=== PATIENT | female | born 1970 | race Caucasian/White ===

== ENCOUNTER 2018-01-19 18:56 | Inpatient (IN) ==
[2018-01-19] MEDS ORDERED: Midazolam 50 MG/50 ML Inj 50 MG/50 ML BAG IV.CONT ONE (19:07)
[2018-01-19] MEDS ORDERED: Propofol 1000 mg/100 ml Inj 1,000 MG/100 ML BOTTLE ONE (19:15)
--- NOTE | 2018-01-19 19:22 | XR ---
EXAM DATE: 01/19/2018 6:58 PM EDT AGE/SEX: 89 years / Female INDICATIONS: Post intubation. CLINICAL DATA: This is the patient's initial encounter. Patient reports that signs and symptoms have been present for 1 day and indicates a pain score of 0/10. MEDICAL/SURGICAL HISTORY: None. None. COMPARISON: No prior exams available for comparison. FINDINGS: The tip of ET tube is 2.2 cm from the bebeto. The NG tube is directed into the stomach. There is an a nterior cervical fusion plate seen at the lower cervical spine. The heart size is normal. The lungs a re grossly clear. Clips are seen over the left axillary region. CONCLUSION: ET tube 2.2 cm from the bebeto. This is in a low but acceptable position. Electronically signed by: Manohar Rosado MD 01/19/2018 7:21 PM EDT
--- NOTE | 2018-01-19 19:31 | CT ---
EXAM DATE: 01/19/2018 7:04 PM EDT AGE/SEX: 89 years / Female INDICATIONS: Trauma alert, fall from standing. CLINICAL DATA: This is the patient's initial encounter. Patient reports that signs and symptoms have been present for 1 day and indicates a pain score of Nonresponsive. MEDICAL/SURGICAL HISTORY: Non-responsive. Non-responsive. RADIATION DOSE: 66.34 CTDI (mGy) COMPARISON: No prior exams available for comparison. TECHNIQUE: CT of the head without contrast. Using automated exposure control and adjustment of the mA and/or kV according to patient size, radiation dose was kept as low as reasonably achievable to ob tain optimal diagnostic quality images. DICOM format image data is available electronically for revi ew and comparison. FINDINGS: Cerebrum: The ventricles are normal for age. No evidence of midline shift, mass lesion, hemorrhage or acute infarction. No extraaxial fluid collections are seen. Posterior Fossa: The cerebellum and brainstem are intact. The 4th ventricle is midline. The cerebe llopontine angle is unremarkable. Extracranial: The visualized portion of the orbits is intact. Skull: The calvaria is intact. No evidence of skull fracture. CONCLUSION: Negative noncontrast head CT. . Electronically signed by: Manohar Rosado MD 01/19/2018 7:29 PM EDT
[2018-01-19 19:32] LABS: Baso % (Auto) 0.2 % (0.0-2.0); Eos % (Auto) 0.4 % (0.0-4.0); Hematocrit 38.2 % (35.0-46.0); Hemoglobin 13.5 gm/dL (11.6-15.3); Lymph # (Auto) 1.5 th/mm3 (1.0-4.8); Lymph % (Auto) 35.4 % (9.0-44.0); Mean Corpuscular HGB Conc 35.3 % (32.0-36.0); Mean Corpuscular Hemoglobin 34.2 pg (27.0-34.0); Mean Corpuscular Volume 96.9 fL (80.0-100.0); Mean Platelet Volume 6.8 fL (7.0-11.0); Mono # (Auto) 0.5 th/mm3 (0.0-0.9); Mono % (Auto) 10.8 % (0.0-8.0); Neut # (Auto) 2.3 th/mm3 (1.8-7.7); Neut % (Auto) 53.2 % (16.0-70.0); Platelet Count 188 th/mm3 (150-450); Red Blood Count 3.94 mil/mm3 (4.00-5.30); Red Cell Distribution Width 13.8 % (11.6-17.2); White Blood Count 4.3 th/mm3 (4.0-11.0)
--- NOTE | 2018-01-19 19:40 | CT ---
EXAM DATE: 01/19/2018 7:04 PM EDT AGE/SEX: 89 years / Female INDICATIONS: Trauma alert, fall from standing. CLINICAL DATA: This is the patient's initial encounter. Patient reports that signs and symptoms have been present for 1 day and indicates a pain score of Nonresponsive. MEDICAL/SURGICAL HISTORY: Non-responsive. Fusion, cervical. RADIATION DOSE: 25.19 CTDI (mGy) COMPARISON: No prior exams available for comparison. TECHNIQUE: Contiguous axial images were obtained using helical multirow detector technique. The vol umetric data was post-processed with multiplanar reconstruction in oblique axial, sagittal, and coron al planes. Using automated exposure control and adjustment of the mA and/or kV according to patient s ize, radiation dose was kept as low as reasonably achievable to obtain optimal diagnostic quality deon ges. DICOM format image data is available electronically for review and comparison. FINDINGS: Vertebrae: There is an anterior cervical fusion plate extending from C5 through C7. There is fusion at the C5-C6 and C6-C7 disc levels. The cervical vertebral bodies are normal in height. Alignment: Normal. No subluxation. C2-3: The bony spinal canal is normal in size. No evidence of disc bulge or herniation. The neural foramina are bilaterally patent. C3-4: The bony spinal canal is normal in size. No evidence of disc bulge or herniation. The neural foramina are bilaterally patent. Mild anterior marginal osteophytes are present. C4-5: The bony spinal canal is normal in size. No evidence of disc bulge or herniation. The neural foramina are bilaterally patent. Mild anterior marginal osteophytes are present. There is mild left uncovertebral hypertrophy. C5-6: The patient is status post fusion at this level. A significant impression on the thecal sac is not seen. There is mild uncovertebral hypertrophy. The neural foramina are patent. C6-7: The patient is status post fusion at this level. There is posterior osteophytic ridging seen c entrally in the left paracentral region causing a mild impression on the thecal sac. There is mild un covertebral hypertrophy. There is mild narrowing of the neural foramina bilaterally. C7-T1: The bony spinal canal is normal in size. No evidence of disc bulge or herniation. The neura l foramina are bilaterally patent. CONCLUSION: 1. No acute abnormality seen. 2. Status post fusion at the C5-6 and C6-C7 levels. There is posterior osteophytic ridging seen cent rally and on the left paracentral region at the C6-C7 level causing a mild impression on thecal sac. 3. Mild neural foraminal narrowing at the C6-C7 level. Electronically signed by: Manohar Rosado MD 01/19/2018 7:38 PM EDT
[2018-01-19 19:44] LABS: Activated Partial Thrombo Time 22.9 sec (24.3-30.1); INR 1.1 Ratio; Prothrombin Time 10.7 sec (9.8-11.6)
[2018-01-19 19:48] LABS: Anion Gap 7 meq/L (5-15); Blood Urea Nitrogen 13 mg/dL (7-18); Calcium 9.2 mg/dL (8.5-10.1); Carbon Dioxide 24.6 meq/L (21.0-32.0); Chloride 108 meq/L (98-107); Glomerular Filtration Rate 45 mL/min (>89); Glucose,Random 89 mg/dL (74-106); Sodium 140 meq/L (136-145)
[2018-01-19] MEDS ORDERED: levETIRAcetam 1000mg/100mL Inj 100 ML IV.SIG STA (19:51)
--- NOTE | 2018-01-19 19:53 | ED ---
HPI General Stated complaint: Trauma Alert Time Seen by Provider: 01/19/18 18:56 Source: EMS Limitations: altered mental status History of Present Illness HPI narrative: 47yF brought in by EMS for unresponsiveness. The patient was found by a embossed or impressed lettering painter lying on the floor of her kitchen. An empty bottle of Ambien and Xanax were found next to her. It is unclear if the patient sustained any traumatic injuries during this incident and she arrived as a Level 1 Trauma Alert. Her initial GCS was 6 and the decision was made to intubate. I was unable to elicit any details of HPI prior to intubation due to altered mental status. Related Data Allergies Allergy/AdvReac Type Severity Reaction Status Date / Time No Allergy Information Allergy Unverified 01/19/18 18:57 Available Review of Systems ROS Unobtainable ROS Unobtainable: unobtainable due to mental status Exam Narrative Exam Narrative: GEN: Ill-appearing, seizure- like activity/ spasms of all 4 extremities noted HEENT: NCAT, pupils 4 mm and sluggishly reactive bilaterally NECK: Cervical collar in place, trachea midline CARDIO: Regular rate and rhythm PULM: Snoring respirations bilaterally ABD/GI: Soft and non-distended EXT/ MSK: No apparent extremity trauma SKIN: Warm and dry, not flushed NEURO: GCS 6 ([id number]), seizure-like activity PSYCH: Unable to assess Procedures Intubation Time Out Performed: Yes Sedative: etomidate Mg Given: 20 Paralytic: succinylcholine Mg Given: 100 Laryngoscope: fiber optic video scope ET Tube Size: 8 ET Tube Uncuffed: Yes Tube Secured Depth (cm): 25 Tube Secured Location: teeth Tube Placement Confirmation: visualized tube passing through cords, equal breath sounds bilaterally, no breath sounds over epigastrium and confirmation by capnometry Patient Tolerated Procedure: well and no complications Additional Comments: ETT backed up by 2 cm after initial CXR Critical Care Time Critical Care Time: Yes Total Critical Care Time: 52 Attestation: Counseling/ Coordination of Care: Total critical care time 52 minutes. This includes examining and stabilizing the patient, gathering a history from a source other than the patient (i.e., EMS ), formulating a differential diagnosis, ordering and interpreting laboratory tests and EKG, ordering and interpreting radiology tests, discussing the patient 's care with other providers (trauma, IMC), management of intractable seizures, re-evaluation at frequent intervals, and documentation. Amount of time is separate from teaching, counseling the patient and/or family, and exclusive of procedures. Medical Decision Making MDM Narrative Medical decision making narrative: Assessment: 47yF presenting with status epilepticus, drug overdose, acute hypoxic respiratory failure Plan: Intubated on arrival CXR showed ETT deep, pulled back 2 cm by RT Sedated currently with versed and propofol, was given rocuronium just prior to CT to prevent motion artifact Labs, including EtOH, ASA, APAP, urine drug screen Case discussed with Dr. Cabrera- no apparent traumatic injuries Case discussed with Dr. Carter- critical care, patient will need ICU level of care Medical Screen Exam Complete: Yes Emergency Medical Condition: Yes Differential Diagnosis Differential Diagnosis: Differential diagnosis includes, but is not limited to: ICH, overdose/ withdrawal, seizure disorder Lab Data Result diagrams: 01/19/18 19:00 01/19/18 19:00 Lab Results 01/19/18 01/19/18 01/19/18 Range/Units 19:00 19:00 19:00 WBC 4.3 (4.0-11.0) th/mm3 RBC 3.94 L (4.00-5.30) mil/mm3 Hgb 13.5 (11.6-15.3) gm/dL POC Hgb (Calc) 12.9 (11.6-15.3) g/dL Hct 38.2 (35.0-46.0) % POC Hct 38.0 (35-46.0) % MCV 96.9 (80.0-100.0) fL MCH 34.2 H (27.0-34.0) pg MCHC 35.3 (32.0-36.0) % RDW 13.8 (11.6-17.2) % Plt Count 188 (150-450) th/mm3 MPV 6.8 L (7.0-11.0) fL Neut % (Auto) 53.2 (16.0-70.0) % Lymph % (Auto) 35.4 (9.0-44.0) % Loving % (Auto) 10.8 H (0.0-8.0) % Eos % (Auto) 0.4 (0.0-4.0) % Baso % (Auto) 0.2 (0.0-2.0) % Neut # (Auto) 2.3 (1.8-7.7) th/mm3 Lymph # (Auto) 1.5 (1.0-4.8) th/mm3 Loving # (Auto) 0.5 (0.0-0.9) th/mm3 Eos # (Auto) 0.0 (0.0-0.4) th/mm3 Baso # (Auto) 0.0 (0.0-0.2) th/mm3 WBC Differential . Differential Comment Auto diff final PT 10.7 (9.8-11.6) sec INR 1.1 Ratio APTT 22.9 L (24.3-30.1) sec Fibrinogen 177 L (227-377) mg/dL POC Sodium 141 (137-144) mmol/L Sodium (136-145) meq/L POC Potassium 3.9 (3.6-5.0) mmol/L Potassium (3.5-5.1) meq/L POC Chloride 104 (102-111) mmol/L Chloride (98-107) meq/L Carbon Dioxide (21.0-32.0) meq/L Anion Gap (5-15) meq/L POC BUN 12 (5-21) mg/dL BUN (7-18) mg/dL Creatinine (0.50-1.00) mg/dL POC Creatinine 1.0 (0.6-1.3) mg/dL Estimated GFR (>89) mL/min POC Glucose 91 (68-110) mg/dL Random Glucose (74-106) mg/dL Calcium (8.5-10.1) mg/dL Troponin I (0.02-0.05) ng/mL Beta HCG, Quant (0-5) mIU/mL Serum Alcohol (0-5) mg/dL Blood Type 01/19/18 01/19/18 01/19/18 Range/Units 19:00 19:00 19:00 WBC (4.0-11.0) th/mm3 RBC (4.00-5.30) mil/mm3 Hgb (11.6-15.3) gm/dL POC Hgb (Calc) (11.6-15.3) g/dL Hct (35.0-46.0) % POC Hct (35-46.0) % MCV (80.0-100.0) fL MCH (27.0-34.0) pg MCHC (32.0-36.0) % RDW (11.6-17.2) % Plt Count (150-450) th/mm3 MPV (7.0-11.0) fL Neut % (Auto) (16.0-70.0) % Lymph % (Auto) (9.0-44.0) % Loving % (Auto) (0.0-8.0) % Eos % (Auto) (0.0-4.0) % Baso % (Auto) (0.0-2.0) % Neut # (Auto) (1.8-7.7) th/mm3 Lymph # (Auto) (1.0-4.8) th/mm3 Loving # (Auto) (0.0-0.9) th/mm3 Eos # (Auto) (0.0-0.4) th/mm3 Baso # (Auto) (0.0-0.2) th/mm3 WBC Differential Differential Comment PT (9.8-11.6) sec INR Ratio APTT (24.3-30.1) sec Fibrinogen Cancelled (227-377) mg/dL POC Sodium (137-144) mmol/L Sodium 140 (136-145) meq/L POC Potassium (3.6-5.0) mmol/L Potassium 4.0 (3.5-5.1) meq/L POC Chloride (102-111) mmol/L Chloride 108 H (98-107) meq/L Carbon Dioxide 24.6 (21.0-32.0) meq/L Anion Gap 7 (5-15) meq/L POC BUN (5-21) mg/dL BUN 13 (7-18) mg/dL Creatinine 1.05 H (0.50-1.00) mg/dL POC Creatinine (0.6-1.3) mg/dL Estimated GFR 45 L (>89) mL/min POC Glucose (68-110) mg/dL Random Glucose 89 (74-106) mg/dL Calcium 9.2 (8.5-10.1) mg/dL Troponin I Less than 0.02 L (0.02-0.05) ng/mL Beta HCG, Quant Less than 1 (0-5) mIU/mL Serum Alcohol Less than 3 (0-5) mg/dL Blood Type B Positive Imaging Data Radiologist's impression: Chest X-Ray 01/19/18 18:58 CONCLUSION: ET tube 2.2 cm from the bebeto. This is in a low but acceptable position. Cervical Spine CT 01/19/18 19:03 CONCLUSION: 1. No acute abnormality seen. 2. Status post fusion at the C5-6 and C6-C7 levels. There is posterior osteophytic ridging seen centrally and on the left paracentral region at the C6- C7 level causing a mild impression on thecal sac. 3. Mild neural foraminal narrowing at the C6-C7 level. Head CT 01/19/18 19:03 CONCLUSION: Negative noncontrast head CT. . Discharge Plan Discharge Disposition Patient Disposition: 30 Still Patient Discharge Condition Condition: Critical Discharge Details Diagnosis: Overdose, Status epilepticus Physicians Team ED Provider: Yadira Trejo Primary Care Provider: UNKNOWN, Attending Provider: Raul Carter Status ED Status: Admitted Patient
[2018-01-19] MEDS ORDERED: Etomidate Inj 20 MG/10 ML Ampul IV.PUSH ONE (19:58)
[2018-01-19] MEDS ORDERED: Bisacodyl 10 MG Supp RECTAL PRN (20:36)
[2018-01-19] MEDS ORDERED: Morphine Sulfate Inj 2 MG/ML Vial IV.PUSH PRN (20:36)
[2018-01-19] MEDS ORDERED: Acetaminophen 325 MG Tablet PO PRN (20:36)
[2018-01-19] MEDS ORDERED: Propofol 1000 mg/100 ml Inj 1,000 MG/100 ML BOTTLE IV.CONT PRN (20:52)
[2018-01-19 20:54] LABS: ABG Base Excess -1.6 mmol/L (-2-2); ABG PCO2 37 mmHg (38-42); ABG PO2 195 mmHg (61-120)
[2018-01-19] MEDS ORDERED: Midazolam 50 MG/50 ML Inj 50 MG/50 ML BAG IV.CONT PRN (20:54)
[2018-01-19] MEDS ORDERED: Enoxaparin Inj 40 MG/0.4 ML Syringe SQ SCH (22:00)
[2018-01-19 22:10] LABS: Amphetamine Screen,Urine Neg (Neg); Barbiturate Screen,Urine Neg (Neg); Cannabinoid Screen,Urine Neg (Neg); Cocaine Screen,Urine Neg (Neg)
[2018-01-19 22:15] LABS: Opiate Screen,Urine Neg (Neg)
[2018-01-19] MEDS: Sod Chloride 0.9% Inj 1,000 ML IV.CONT SCH (22:16)
[2018-01-19] MEDS: Senna/Docusate Sodium 8.6/50 MG Tablet PO SCH (22:20)
[2018-01-19] MEDS: Famotidine 20 MG Tablet PO SCH (22:20)
--- NOTE | 2018-01-19 22:53 | P.HPCC ---
History of Present Illness Primary Care Physician: UNKNOWN History of Present Illness: 47-year-old female was brought in by EMS for unresponsiveness. The patient was found by a manager food beverage lying on the floor of her kitchen. An empty bottle of Ambien and Xanax were found next to her. It is unclear if the patient sustained any traumatic injuries during this incident and she arrived as a Level 1 Trauma Alert. Her initial GCS was 6 and the decision was made to intubate. Initial workup in the emergency department did not show any injury and the patient has been admitted to medicine and critical care as an overdose. Inpatient Certification: I certify that the inpatient services were ordered in accordance with Medicare regulations governing the order. This includes certification that hospital inpatient services are reasonable and necessary and in the case of services not specified as inpatient-only under 42 CFR 419.22(n), that they are appropriately provided as inpatient services in accordance to with the 2-midnight benchmark under 43 CFR 412.3(e) Estimated Total Length of Stay (Days): 5 Plans for Post Hospital Care: Not yet determined Review of Systems unobtainable due to endotracheal tube, unobtainable due to mental status PMFSH - Medical / Surgical Hx Neg / Unobtainable Medical Problems Denied: Unable to Obtain Surgical History: Unable to Obtain - Tobacco History Smoking Status: Unknown if ever smoked Medications and Allergies Active Medications: Active Medications Acetaminophen (Tylenol) 650 mg PO Q6H PRN PRN Reason: PAIN 1-10 AND/OR FEVER >101F Al Hydroxide/Mg Hydroxide (Milk Of Stanley Liq) 30 ml PO Q12H PRN PRN Reason: Mild Constipation Albuterol (Duoneb Neb (Prn)) 1 ampul NEB Q2HR NEB PRN PRN Reason: WHEEZING Bisacodyl (Dulcolax Supp) 10 mg RECTAL DAILY PRN PRN Reason: SEVERE CONSITIPATION Chlorhexidine Gluconate (Chlorhexidine 2% Cloth) 3 pack TOPICAL DAILY@0400 DELMA Stop: 01/25/18 03:59 Chlorhexidine Gluconate (Chlorhexidine 2% Cloth) 3 pack TOPICAL DAILY@0400 PRN PRN Reason: Extra cloth needed Stop: 01/25/18 03:59 Chlorhexidine Gluconate (Peridex 0.12% Oral Kit) 15 ml OROPHARYNG BID@0800, 2000 DELMA Enoxaparin Sodium (Lovenox Inj) 40 mg SQ Q24H [facility] Last Admin: 01/19/18 22:20 Dose: 40 mg Famotidine (Pepcid) 20 mg PO BID [facility] Last Admin: 01/19/18 22:20 Dose: 20 mg Famotidine (Pepcid Pf Inj) 20 mg IV.PUSH Q12HR [facility] Sodium Chloride (Ns Inj) 1,000 mls @ 154 mls/hr IV.CONT .Q6H30M [facility] Last Admin: 01/19/18 22:16 Dose: 154 mls/hr Propofol (Diprivan 1000 Mg/100 Ml Inj) 1,000 mg in 100 mls @ 2.697 mls/hr IV.CONT TITRATE PRN; Protocol PRN Reason: Per Protocol Midazolam HCl (Versed Inj) 50 mg in 50 mls @ 2 mls/hr IV.CONT TITRATE PRN; Protocol PRN Reason: Per Protocol Lactulose (Lactulose Liq) 30 ml PO DAILY PRN PRN Reason: SEVERE CONSITIPATION Miscellaneous Medication () 1 each OROPHARYNG 0000,0400,1200,1600 [facility] Morphine Sulfate (Morphine Inj) 2 mg IV.PUSH Q2H PRN PRN Reason: PAIN SCALE 6 TO 10 Ondansetron HCl (Zofran Inj) 4 mg IV.PUSH Q6H PRN PRN Reason: NAUSEA OR VOMITING Senna/Docusate Sodium (Sandy-Colace) 1 tab PO BID [facility] Last Admin: 01/19/18 22:20 Dose: 1 tab Sennosides (Senokot) 17.2 mg PO Q12H PRN PRN Reason: Moderate Constipation Sodium Chloride (Ns Flush) 2 ml IV.FLUSH BID [facility] Sodium Chloride (Ns Flush) 2 ml IV.FLUSH PRN PRN PRN Reason: FLUSH AFTER USING IV ACCESS Allergies Allergy/AdvReac Type Severity Reaction Status Date / Time No Allergy Information Allergy Verified 01/19/18 22:53 Available Results - Labs CBC & Chem 7: 01/19/18 19:00 01/19/18 19:00 Labs: Short CBC 01/19/18 Range/Units 19:00 WBC 4.3 (4.0-11.0) th/mm3 Hgb 13.5 (11.6-15.3) gm/dL Hct 38.2 (35.0-46.0) % Plt Count 188 (150-450) th/mm3 BMP 01/19/18 19:00 Sodium 140 Potassium 4.0 Chloride 108 H Carbon Dioxide 24.6 BUN 13 Creatinine 1.05 H Calcium 9.2 Cardiac Enzymes 01/19/18 Range/Units 19:00 Troponin I Less than 0.02 L (0.02-0.05) ng/mL - Imaging Impressions Chest X-Ray 01/19/18 18:58 CONCLUSION: ET tube 2.2 cm from the bebeto. This is in a low but acceptable position. Cervical Spine CT 01/19/18 19:03 CONCLUSION: 1. No acute abnormality seen. 2. Status post fusion at the C5-6 and C6-C7 levels. There is posterior osteophytic ridging seen centrally and on the left paracentral region at the C6- C7 level causing a mild impression on thecal sac. 3. Mild neural foraminal narrowing at the C6-C7 level. Head CT 01/19/18 19:03 CONCLUSION: Negative noncontrast head CT. . Exam Vital signs: Vital Signs 01/19/18 21:00 Temperature 98.5 F Pulse Rate 86 Respiratory Rate 20 Blood Pressure 138/84 Pulse Oximetry 100 Intake & Output 01/19/18 01/19/18 01/20/18 06:59 18:59 06:59 Weight 89.9 kg Other: Weight On Admission 89.9 kg - Constitutional moderate distress - Routine HEENT Exam Head: Present: normocephalic, atraumatic Eye: Present: PERRL ENT: Present: mucous membranes moist - Routine Neck Exam Present: full ROM. Absent: JVD, carotid bruit - Routine Respiratory Exam Present: patient mechanically ventilated. Absent: rhonchi, stridor, wheezes - Routine Cardiovascular Exam Present: RRR, S1, S2 - Routine Abdominal Exam Present: soft, normoactive bowel sounds. Absent: tenderness, distended - Routine Extremities Exam Absent: cyanosis, clubbing, edema - Routine Skin Exam Present: intact. Absent: cyanosis, erythema - Routine Neurological Exam Present: altered mental status Septic Shock Reassessment Septic shock perfusion: reassessment completed Caprini VTE Risk Assessment Caprini VTE Risk Assessment: Moderate/High Risk (score >= 2) Caprini Risk Assessment Model: Point Value = 1 Point Value = 2 Point Value = 3 Point Value = 5 Age 41-60 Minor surgery BMI > 25 kg/m2 Swollen legs Varicose veins or History of unexplained or recurrent spontaneous Oral contraceptives or hormone replacement Sepsis (< 1 month) Serious lung disease, including pneumonia (< 1 month) Abnormal pulmonary function Acute myocardial infarction Congestive heart failure (< 1 month) History of inflammatory bowel disease Medical patient at bed rest Age 61-74 Arthroscopic surgery Major open surgery (> 45 min) Laparoscopic surgery (> 45 min) Malignancy Confined to bed (> 72 hours) Immobilizing plaster cast Central venous access Age >= 75 History of VTE Family history of VTE Factor V Leiden Prothrombin [id number] Lupus anticoagulant Anticardiolipin antibodies Elevated serum homocysteine Heparin-induced thrombocytopenia Other congenital or acquired thrombophilia Stroke (< 1 month) Elective arthroplasty Hip, pelvis, or leg fracture Acute spinal cord injury (< 1 month) Prophylaxis Regimen: Total Risk Factor Score Risk Level Prophylaxis Regimen 0-1 Low Early ambulation 2 Moderate Order ONE of the following: *Sequential Compression Device (SCD) *Heparin 5000 units SQ BID 3-4 Higher Order ONE of the following medications: *Heparin 5000 units SQ TID *Enoxaparin/Lovenox 40 mg SQ daily (WT < 150 kg, CrCl > 30 mL/min) *Enoxaparin/Lovenox 30 mg SQ daily (WT < 150 kg, CrCl > 10-29 mL/min) *Enoxaparin/Lovenox 30 mg SQ BID (WT < 150 kg, CrCl > 30 mL/min) AND/OR *Sequential Compression Device (SCD) 5 or more Highest Order ONE of the following medications: *Heparin 5000 units SQ TID (Preferred with Epidurals) *Enoxaparin/Lovenox 40 mg SQ daily (WT < 150 kg, CrCl > 30 mL/min) *Enoxaparin/Lovenox 30 mg SQ daily (WT < 150 kg, CrCl > 10-29 mL/min) *Enoxaparin/Lovenox 30 mg SQ BID (WT < 150 kg, CrCl > 30 mL/min) AND *Sequential Compression Device (SCD) Assessment and Plan - Assessment and Plan Plan: Respiratory failure -Intubated for nearly protection -SBT and attempt to wean and extubate when neurologically improved -Vent bundle -DuoNeb's as needed Altered mental status -Likely alprazolam and zolpidem overdose -Supportive care -Psychiatry evaluation when extubated Suicide attempt -Psychiatry evaluation when extubated DVT GI prophylaxis -Teds SCDs -Subcu heparin -Pepcid 35 minutes of critical care
[2018-01-20] MEDS: Oral Hygiene Kit OROPHARYNG SCH ×4 (00:12→17:11)
[2018-01-20 01:43] LABS: Baso % (Auto) 0.3 % (0.0-2.0); Eos % (Auto) 0.4 % (0.0-4.0); Hematocrit 39.3 % (35.0-46.0); Hemoglobin 13.4 gm/dL (11.6-15.3); Lymph # (Auto) 1.4 th/mm3 (1.0-4.8); Lymph % (Auto) 23.3 % (9.0-44.0); Mean Corpuscular Hemoglobin 33.2 pg (27.0-34.0); Mean Corpuscular Volume 97.5 fL (80.0-100.0); Mean Platelet Volume 6.7 fL (7.0-11.0); Mono # (Auto) 0.4 th/mm3 (0.0-0.9); Mono % (Auto) 6.9 % (0.0-8.0); Neut # (Auto) 4.2 th/mm3 (1.8-7.7); Neut % (Auto) 69.1 % (16.0-70.0); Platelet Count 191 th/mm3 (150-450); Red Blood Count 4.03 mil/mm3 (4.00-5.30); Red Cell Distribution Width 13.9 % (11.6-17.2); White Blood Count 6.1 th/mm3 (4.0-11.0)
[2018-01-20 01:56] LABS: Activated Partial Thrombo Time 25.4 sec (24.3-30.1); INR 1.1 Ratio; Prothrombin Time 10.7 sec (9.8-11.6)
--- NOTE | 2018-01-20 02:07 | P.PNCC ---
Subjective Brief History: [age]-old female found on the floor of the kitchen with an empty bottle of Xanax and Ambien. Patient was called the trauma alert from the field although she essentially had no criteria for the same and no signs of traumatic injury. Patient arrives to our institution clearly overdosed with Wily Coma Scale of 6 and is immediately intubated ventilated and treated. In the emergency room patient developed seizures which are controlled and undergoes diagnostic workup. As noted patient has no traumatic injuries and is admitted to medicine for overdose treatment No reason for further involvement of trauma surgery Thanks J Objective Vital Signs / I&O: Vital Signs 01/19/18 21:00 01/20/18 00:00 01/20/18 00:23 Temperature 98.5 F 98.8 F Pulse Rate 86 78 Respiratory Rate 20 16 16 Blood Pressure 138/84 133/81 Pulse Oximetry 100 100 100 Intake & Output 01/19/18 01/19/18 01/20/18 06:59 18:59 06:59 Weight 89.9 kg Other: Weight On Admission 89.9 kg Result Diagrams: 01/20/18 01:28 01/19/18 19:00 Imaging: Impressions Chest X-Ray 01/19/18 18:58 CONCLUSION: ET tube 2.2 cm from the bebeto. This is in a low but acceptable position. Cervical Spine CT 01/19/18 19:03 CONCLUSION: 1. No acute abnormality seen. 2. Status post fusion at the C5-6 and C6-C7 levels. There is posterior osteophytic ridging seen centrally and on the left paracentral region at the C6- C7 level causing a mild impression on thecal sac. 3. Mild neural foraminal narrowing at the C6-C7 level. Head CT 01/19/18 19:03 CONCLUSION: Negative noncontrast head CT. .
[2018-01-20 02:09] LABS: Alanine Aminotransferase 19 U/L (10-53); Albumin 3.6 g/dL (3.4-5.0); Alkaline Phosphatase 31 U/L (45-117); Anion Gap 8 meq/L (5-15); Aspartate Aminotransferase 10 U/L (15-37); Blood Urea Nitrogen 10 mg/dL (7-18); Calcium 7.9 mg/dL (8.5-10.1); Carbon Dioxide 23.2 meq/L (21.0-32.0); Chloride 110 meq/L (98-107); Glomerular Filtration Rate 60 mL/min (>89); Glucose,Random 98 mg/dL (74-106); Magnesium 1.8 mg/dL (1.5-2.5); Phosphorus 2.6 mg/dL (2.5-4.9); Potassium 3.1 meq/L (3.5-5.1); Sodium 141 meq/L (136-145)
[2018-01-20] MEDS ORDERED: Chlorhexidine Gluconate 2% 1 Pack (2 Cloths) TOPICAL SCH (04:00)
[2018-01-20] MEDS ORDERED: Chlorhexidine Gluconate 2% 1 Pack (2 Cloths) TOPICAL PRN (04:00)
[2018-01-20] MEDS: Sod Chloride 0.9% Inj 1,000 ML IV.CONT SCH ×3 (05:42→17:40)
[2018-01-20] MEDS: Famotidine PF Inj 20 MG/2 ML Vial IV.PUSH SCH ×2 (05:44→08:56)
[2018-01-20] MEDS ORDERED: Chlorhexidine 0.12% Oral Kit 15 ML UDC OROPHARYNG SCH (08:00)
[2018-01-20] MEDS: Famotidine 20 MG Tablet PO SCH (08:55)
[2018-01-20] MEDS: Senna/Docusate Sodium 8.6/50 MG Tablet PO SCH (08:55)
[2018-01-20] MEDS ORDERED: Benzocaine/Menthol 15 MG/3.6 MG SF Lozenge BUCCAL PRN (09:01)
--- NOTE | 2018-01-20 09:10 | P.PN ---
Subjective Interval history: Consulted by critical care medicine for transfer care medical management. Patient came in with altered mental status likely secondary to benzodiazepines. Developed seizure in the emergency department status post Keppra. Also patient was intubated then extubated tolerating room air. This time, patient is alert and oriented. Patient was in her usual state of health took as needed Klonopin yesterday. Denies fever, chills, headache, neck pain, nausea and vomiting. She has history of migraine on Topamax and anxiety on Klonopin. 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 No recurrence of seizure. Discussed with critical care medicine and neurology, cancel EEG and cleared patient for discharge. Neurology recommended Inderal for migraine prophylaxis which patient refused to take. She will continue on Topamax. Physical Exam Vital signs: Vital Signs 01/19/18 21:00 01/20/18 00:00 01/20/18 00:23 Temperature 98.5 F 98.8 F Pulse Rate 86 78 Respiratory Rate 20 16 16 Blood Pressure 138/84 133/81 Pulse Oximetry 100 100 100 01/20/18 04:00 01/20/18 04:51 01/20/18 08:00 Temperature 98.2 F Pulse Rate 71 Respiratory Rate 16 16 Blood Pressure 123/73 Pulse Oximetry 100 98 98 Intake & Output 01/19/18 01/20/18 01/20/18 18:59 06:59 18:59 Intake Total 1100 / 1100 100 / 100 Output Total 2250 / 2250 Balance -1150 / -1150 100 / 100 Weight 88.7 kg Intake: IV 1100 / 1100 100 / 100 Diprivan 1000 mg/100 ml Inj 1, 100 / 100 000 mg In 100 ml @ 5 MCG/KG/MIN 2.697 mls/hr IV.CONT TITRATE PRN Rx#:[id number] NS Inj 1,000 ML @ 154 mls/hr IV 1000 / 1000 .CONT .Q6H30M DELMA Rx#:[id number] Keppra 1000 mg/100 mL Premix 100 / 100 100 ML @ 400 mls/hr IV.SIG STAT STA Rx#:[id number] Output: Urine 2250 / 2250 Other: # Incontinent Bowel Movements 0 Weight On Admission 89.9 kg Narrative: GENERAL: Well-developed, well-nourished in no distress SKIN: Warm and dry. CARDIOVASCULAR: Regular rate and rhythm. RESPIRATORY: No accessory muscle use. Clear to auscultation. Breath sounds equal bilaterally. GASTROINTESTINAL: Abdomen soft, non-tender, nondistended. MUSCULOSKELETAL: Extremities without clubbing, cyanosis, or edema. No obvious deformities. NEUROLOGICAL: Awake and alert. No obvious cranial nerve deficits. Motor grossly within normal limits. Five out of 5 muscle strength in the arms and legs. Normal speech. PSYCHIATRIC: Appropriate mood and affect; insight and judgment normal. - Urinary Catheter Management Indwelling Urethral Catheter Cath placed during this visit: yes, but has since been removed by the nurse Reason for continuing: Continue criteria not met Removal date: 01/20/18 Removal time: 08:00 Results - Labs CBC & Chem 7: 01/20/18 01:28 01/20/18 01:28 Laboratory Results - last 24 hr 01/19/18 01/19/18 01/19/18 19:00 19:00 19:00 WBC 4.3 RBC 3.94 L Hgb 13.5 POC Hgb (Calc) 12.9 Hct 38.2 POC Hct 38.0 MCV 96.9 MCH 34.2 H MCHC 35.3 RDW 13.8 Plt Count 188 MPV 6.8 L Neut % (Auto) 53.2 Lymph % (Auto) 35.4 [place] % (Auto) 10.8 H Eos % (Auto) 0.4 Baso % (Auto) 0.2 Neut # (Auto) 2.3 Lymph # (Auto) 1.5 [place] # (Auto) 0.5 Eos # (Auto) 0.0 Baso # (Auto) 0.0 WBC Differential . Differential Comment Auto diff final PT 10.7 INR 1.1 APTT 22.9 L Fibrinogen 177 L Puncture Site Patient Temperature O2 Saturation ABG pH ABG pCO2 ABG pO2 ABG HCO3 ABG O2 Content ABG Base Excess ABG Methemoglobin Dilan Test Hemoglobin Carboxyhemoglobin O2 Delivery Device Vent Setting Inspired O2 Critical Value POC Sodium 141 Sodium POC Potassium 3.9 Potassium POC Chloride 104 Chloride Carbon Dioxide Anion Gap POC BUN 12 BUN Creatinine POC Creatinine 1.0 Estimated GFR POC Glucose 91 Random Glucose Calcium Phosphorus Magnesium Total Bilirubin AST ALT Alkaline Phosphatase Troponin I Total Protein Albumin Beta HCG, Quant Nasal Screen MRSA (PCR) Salicylates Urine Opiates Screen Acetaminophen Ur Barbiturates Screen Ur Amphetamines Screen U Benzodiazepines Scrn Urine Cocaine Screen U Cannabinoids Screen Serum Alcohol Blood Type Blood Type Recheck Antibody Screen 01/19/18 01/19/18 01/19/18 19:00 19:00 19:00 WBC RBC Hgb POC Hgb (Calc) Hct POC Hct MCV MCH MCHC RDW Plt Count MPV Neut % (Auto) Lymph % (Auto) [place] % (Auto) Eos % (Auto) Baso % (Auto) Neut # (Auto) Lymph # (Auto) [place] # (Auto) Eos # (Auto) Baso # (Auto) WBC Differential Differential Comment PT INR APTT Fibrinogen Cancelled Puncture Site Patient Temperature O2 Saturation ABG pH ABG pCO2 ABG pO2 ABG HCO3 ABG O2 Content ABG Base Excess ABG Methemoglobin Dilan Test Hemoglobin Carboxyhemoglobin O2 Delivery Device Vent Setting Inspired O2 Critical Value POC Sodium Sodium 140 POC Potassium Potassium 4.0 POC Chloride Chloride 108 H Carbon Dioxide 24.6 Anion Gap 7 POC BUN BUN 13 Creatinine 1.05 H POC Creatinine Estimated GFR 45 L POC Glucose Random Glucose 89 Calcium 9.2 Phosphorus Magnesium Total Bilirubin AST ALT Alkaline Phosphatase Troponin I Less than 0.02 L Total Protein Albumin Beta HCG, Quant Less than 1 Nasal Screen MRSA (PCR) Salicylates Urine Opiates Screen Acetaminophen Ur Barbiturates Screen Ur Amphetamines Screen U Benzodiazepines Scrn Urine Cocaine Screen U Cannabinoids Screen Serum Alcohol Less than 3 Blood Type B Positive Blood Type Recheck Not needed Antibody Screen Negative 01/19/18 01/19/18 01/19/18 20:43 21:20 21:25 WBC RBC Hgb POC Hgb (Calc) Hct POC Hct MCV MCH MCHC RDW Plt Count MPV Neut % (Auto) Lymph % (Auto) [place] % (Auto) Eos % (Auto) Baso % (Auto) Neut # (Auto) Lymph # (Auto) [place] # (Auto) Eos # (Auto) Baso # (Auto) WBC Differential Differential Comment PT INR APTT Fibrinogen Puncture Site Left radial Patient Temperature 98.6 O2 Saturation 97 ABG pH 7.41 ABG pCO2 37 L ABG pO2 195 H ABG HCO3 22 ABG O2 Content 18.2 ABG Base Excess -1.6 ABG Methemoglobin 1.0 Dilan Test Present Hemoglobin 13.1 Carboxyhemoglobin 0.0 O2 Delivery Device Ventilator Vent Setting See comment Inspired O2 50 Critical Value No POC Sodium Sodium POC Potassium Potassium POC Chloride Chloride Carbon Dioxide Anion Gap POC BUN BUN Creatinine POC Creatinine Estimated GFR POC Glucose Random Glucose Calcium Phosphorus Magnesium Total Bilirubin AST ALT Alkaline Phosphatase Troponin I Total Protein Albumin Beta HCG, Quant Nasal Screen MRSA (PCR) Not detected Salicylates Urine Opiates Screen Neg Acetaminophen Ur Barbiturates Screen Neg Ur Amphetamines Screen Neg U Benzodiazepines Scrn Pos H Urine Cocaine Screen Neg U Cannabinoids Screen Neg Serum Alcohol Blood Type Blood Type Recheck Antibody Screen 01/20/18 01/20/18 01/20/18 01:28 01:28 01:28 WBC 6.1 RBC 4.03 Hgb 13.4 POC Hgb (Calc) Hct 39.3 POC Hct MCV 97.5 MCH 33.2 MCHC 34.0 RDW 13.9 Plt Count 191 MPV 6.7 L Neut % (Auto) 69.1 Lymph % (Auto) 23.3 [place] % (Auto) 6.9 Eos % (Auto) 0.4 Baso % (Auto) 0.3 Neut # (Auto) 4.2 Lymph # (Auto) 1.4 [place] # (Auto) 0.4 Eos # (Auto) 0.0 Baso # (Auto) 0.0 WBC Differential . Differential Comment Auto diff final PT 10.7 INR 1.1 APTT 25.4 Fibrinogen Puncture Site Patient Temperature O2 Saturation ABG pH ABG pCO2 ABG pO2 ABG HCO3 ABG O2 Content ABG Base Excess ABG Methemoglobin Dilan Test Hemoglobin Carboxyhemoglobin O2 Delivery Device Vent Setting Inspired O2 Critical Value POC Sodium Sodium 141 POC Potassium Potassium 3.1 L D POC Chloride Chloride 110 H Carbon Dioxide 23.2 Anion Gap 8 POC BUN BUN 10 Creatinine 0.82 POC Creatinine Estimated GFR 60 L POC Glucose Random Glucose 98 Calcium 7.9 L D Phosphorus 2.6 Magnesium 1.8 Total Bilirubin 0.2 AST 10 L ALT 19 Alkaline Phosphatase 31 L Troponin I Total Protein 6.0 L Albumin 3.6 Beta HCG, Quant Nasal Screen MRSA (PCR) Salicylates Urine Opiates Screen Acetaminophen Less than 2.0 L Ur Barbiturates Screen Ur Amphetamines Screen U Benzodiazepines Scrn Urine Cocaine Screen U Cannabinoids Screen Serum Alcohol Blood Type Blood Type Recheck Antibody Screen 01/20/18 01:28 WBC RBC Hgb POC Hgb (Calc) Hct POC Hct MCV MCH MCHC RDW Plt Count MPV Neut % (Auto) Lymph % (Auto) [place] % (Auto) Eos % (Auto) Baso % (Auto) Neut # (Auto) Lymph # (Auto) [place] # (Auto) Eos # (Auto) Baso # (Auto) WBC Differential Differential Comment PT INR APTT Fibrinogen Puncture Site Patient Temperature O2 Saturation ABG pH ABG pCO2 ABG pO2 ABG HCO3 ABG O2 Content ABG Base Excess ABG Methemoglobin Dilan Test Hemoglobin Carboxyhemoglobin O2 Delivery Device Vent Setting Inspired O2 Critical Value POC Sodium Sodium POC Potassium Potassium POC Chloride Chloride Carbon Dioxide Anion Gap POC BUN BUN Creatinine POC Creatinine Estimated GFR POC Glucose Random Glucose Calcium Phosphorus Magnesium Total Bilirubin AST ALT Alkaline Phosphatase Troponin I Total Protein Albumin Beta HCG, Quant Nasal Screen MRSA (PCR) Salicylates Less than 1.7 L Urine Opiates Screen Acetaminophen Ur Barbiturates Screen Ur Amphetamines Screen U Benzodiazepines Scrn Urine Cocaine Screen U Cannabinoids Screen Serum Alcohol Blood Type Blood Type Recheck Antibody Screen - Imaging Impressions Chest X-Ray 01/19/18 18:58 CONCLUSION: ET tube 2.2 cm from the bebeto. This is in a low but acceptable position. Cervical Spine CT 01/19/18 19:03 CONCLUSION: 1. No acute abnormality seen. 2. Status post fusion at the C5-6 and C6-C7 levels. There is posterior osteophytic ridging seen centrally and on the left paracentral region at the C6- C7 level causing a mild impression on thecal sac. 3. Mild neural foraminal narrowing at the C6-C7 level. Head CT 01/19/18 19:03 CONCLUSION: Negative noncontrast head CT. . - Procedures Intubated Assessment and Plan - Plan Respiratory failure -Secondary to altered mental status. This is improved she has been extubated tolerating room air Toxic encephalopathy. Resolved -Likely alprazolam and zolpidem overdose -Supportive care -Psychiatry evaluation Seizure status post Keppra. Head CT without acute changes. This could have contributed to encephalopathy. Obtain CPK. Discussed with neurology, cancel EEG at this time and cleared patient for discharge. Seizure precautions Hypokalemia. Replaced. Magnesium within normal limits. Suicide attempt, patient denies -Psychiatry evaluation pending Migraine headaches. Patient on Topamax Anxiety. Patient on Klonopin counseled regarding benzodiazepines DVT GI prophylaxis -Teds SCDs -Subcu heparin -Pepcid Discharge Planning: Discharge patient to home Condition on discharge: Improved Regular Diet as tolerated Ad Elena activity no driving, swimming alone, carrying young children and climbing heights Rx written: None Follow-up with primary care physician and neurology
[2018-01-20] MEDS ORDERED: Potassium Bicarbonate 25 MEQ Effervescent Tablet PO SCH (09:15)
[2018-01-20 12:57] VITALS: TEMP 99.3
--- NOTE | 2018-01-20 14:09 | P.CONPSY ---
Provisional Diagnosis Admission Date: January 19, 2018 19:40 [place] I.: Adjustment disorder with depressed mood, R/O MDD, R/O benzodiazepine dependence , Hx of anxiety History of Present Illness Service: Medicne Primary Care Provider: UNKNOWN History of Present Illness: The patient is a 47-year-old woman, domiciled with her and 2 kids, employed as a nurse, with a psychiatric history of insomnia and anxiety, no previous psychiatric hospitalizations, she denies previous suicidal attempts , she says that she is in clonazepam 1 mg 3 times per day, Ambien 10 mg, medical history of migraines, who was brought in by EMS for unresponsiveness. The patient was found by a regional education coordinator lying on the floor of her kitchen. An empty bottle of Ambien and Xanax were found next to her. It is unclear if the patient sustained any traumatic injuries during this incident and she arrived as a Level 1 Trauma Alert. Her initial GCS was 6 and the decision was made to intubate. Initial workup in the emergency department did not show any injury and the patient has been admitted to medicine and critical care as an overdose. She was Intubated for airway protection. Consulted to psychiatry to address a potential suicidal overdose. The patient is on the Deras act initiated by law enforcement. On my psychiatric evaluation the patient is calm, cooperative, but in a complete denial of the situation that brought her to the hospital with a very poor insight of her overdose. She says that she did not overdose and she just blacked out. She says that she takes her clonazepam 1 mg 3 times per day as prescribed and she does not understand how the police found Xanax around her. During the evaluation the patient became quite defiant to me requesting to be discharged and refusing to elaborate about the circumstances of her overdose. She denies suicidal ideation, denies homicidal ideation at the moment , denies visual and auditory hallucinations. Fully oriented x3, goal-directed, logical, coherent, without loosening of associations, paranoia, ideas of reference present at the moment. I tried to get collateral information from her , telephone [phone], but unfortunately he did not answer the phone call. PPHx: History of anxiety, insomnia, no previous psychiatric hospitalizations, no suicide attempts, she is on clonazepam 1 mg 3 times daily prescribed by PCP PMHx: Medical history of migraine Substance Hx: She reports occasional use of alcohol Family Hx: Denies family psychiatric history Social Hx: The patient was born and raised in [place], she lives with her and 2 kids in [place], she works as a nurse, her highest level of education is a bachelor degree. PMFSH - History History Provided By: Family Member - Medical / Surgical Hx Neg / Unobtainable Medical Problems Denied: Unable to Obtain - Tobacco History Smoking Status: Unknown if ever smoked - Alcohol History How Often Do You Have a Drink Containing Alcohol: Never - Substance Use History Substance History: No History of Abuse - Immunization History Tetanus Immunization: <5 Years Hx Influenza Vaccine This Season: No Medications and Allergies Active Medications: Active Medications Acetaminophen (Tylenol) 650 mg PO Q6H PRN PRN Reason: PAIN 1-10 AND/OR FEVER >101F Al Hydroxide/Mg Hydroxide (Milk Of Stanley Guillen) 30 ml PO Q12H PRN PRN Reason: Mild Constipation Albuterol (Duoneb Neb (Prn)) 1 ampul NEB Q2HR NEB PRN PRN Reason: WHEEZING Benzocaine/Menthol (Cepacol Max Strength) 1 lozenge BUCCAL Q4H PRN PRN Reason: SORE THROAT Bisacodyl (Dulcolax Supp) 10 mg RECTAL DAILY PRN PRN Reason: SEVERE CONSITIPATION Chlorhexidine Gluconate (Chlorhexidine 2% Cloth) 3 pack TOPICAL DAILY@0400 [facility] Stop: 01/25/18 03:59 Last Admin: 01/20/18 05:43 Dose: 3 pack Chlorhexidine Gluconate (Chlorhexidine 2% Cloth) 3 pack TOPICAL DAILY@0400 PRN PRN Reason: Extra cloth needed Stop: 01/25/18 03:59 Chlorhexidine Gluconate (Peridex 0.12% Oral Kit) 15 ml OROPHARYNG BID@0800, 2000 [facility] Last Admin: 01/20/18 10:29 Dose: Not Given Enoxaparin Sodium (Lovenox Inj) 40 mg SQ Q24H [facility] Last Admin: 01/19/18 22:20 Dose: 40 mg Famotidine (Pepcid) 20 mg PO BID [facility] Last Admin: 01/20/18 08:55 Dose: 20 mg Sodium Chloride (Ns Inj) 1,000 mls @ 154 mls/hr IV.CONT .Q6H30M [facility] Last Admin: 01/20/18 05:42 Dose: 154 mls/hr Propofol (Diprivan 1000 Mg/100 Ml Inj) 1,000 mg in 100 mls @ 2.697 mls/hr IV.CONT TITRATE PRN; Protocol PRN Reason: Per Protocol Last Titration: 01/20/18 07:25 Dose: Infused Midazolam HCl (Versed Inj) 50 mg in 50 mls @ 2 mls/hr IV.CONT TITRATE PRN; Protocol PRN Reason: Per Protocol Last Admin: 01/19/18 23:56 Dose: 2 mg/hr, 2 mls/hr Lactulose (Lactulose Liq) 30 ml PO DAILY PRN PRN Reason: SEVERE CONSITIPATION Lorazepam (Ativan Inj) 1 mg IV.PUSH Q6H PRN PRN Reason: SEIZURES Miscellaneous Medication () 1 each OROPHARYNG 0000,0400,1200,1600 [facility] Last Admin: 01/20/18 11:00 Dose: Not Given Morphine Sulfate (Morphine Inj) 2 mg IV.PUSH Q2H PRN PRN Reason: PAIN SCALE 6 TO 10 Ondansetron HCl (Zofran Inj) 4 mg IV.PUSH Q6H PRN PRN Reason: NAUSEA OR VOMITING Senna/Docusate Sodium (Sandy-Colace) 1 tab PO BID [facility] Last Admin: 01/20/18 08:55 Dose: 1 tab Sennosides (Senokot) 17.2 mg PO Q12H PRN PRN Reason: Moderate Constipation Sodium Chloride (Ns Flush) 2 ml IV.FLUSH BID [facility] Last Admin: 01/20/18 08:55 Dose: 2 ml Sodium Chloride (Ns Flush) 2 ml IV.FLUSH PRN PRN PRN Reason: FLUSH AFTER USING IV ACCESS Allergies Allergy/AdvReac Type Severity Reaction Status Date / Time No Allergy Information Allergy Verified 01/19/18 22:53 Available Exam Vital signs: Vital Signs 01/19/18 21:00 01/20/18 00:00 01/20/18 00:23 Temperature 98.5 F 98.8 F Pulse Rate 86 78 Respiratory Rate 20 16 16 Blood Pressure 138/84 133/81 Pulse Oximetry 100 100 100 01/20/18 04:00 01/20/18 04:51 01/20/18 08:00 Temperature 98.2 F 98.3 F Pulse Rate 71 85 Respiratory Rate 16 16 22 Blood Pressure 123/73 130/70 Pulse Oximetry 100 98 99 01/20/18 09:00 01/20/18 12:00 Temperature 99.3 F Pulse Rate 85 91 H Respiratory Rate 18 Blood Pressure 135/84 Pulse Oximetry Intake & Output 01/19/18 01/20/18 01/20/18 18:59 06:59 18:59 Intake Total 1100 / 1100 200 / 200 Output Total 2250 / 2250 Balance -1150 / -1150 200 / 200 Weight 88.7 kg Intake: IV 1100 / 1100 200 / 200 Diprivan 1000 mg/100 ml Inj 1, 100 / 100 000 mg In 100 ml @ 5 MCG/KG/MIN 2.697 mls/hr IV.CONT TITRATE PRN Rx#:[id number] NS Inj 1,000 ML @ 154 mls/hr IV 1000 / 1000 .CONT .Q6H30M DELMA Rx#:[id number] Keppra 1000 mg/100 mL Premix 100 / 100 100 ML @ 400 mls/hr IV.SIG STAT STA Rx#:[id number] Output: Urine 2250 / 2250 Other: # Incontinent Bowel Movements 0 Weight On Admission 89.9 kg Mental Status Examination Appearance: Appropriate Consciousness: Alert Orientation: x4 Motor Activity: Normal gait Speech: Unremarkable Language: Adequate Fund of Knowledge: Adequate Attention and Concentration: Adequate Memory: Unremarkable Mood: Angry Affect: Irritable Thought Process & Associations: Intact Thought Content: Appropriate Hallucination Type: None Delusion Type: None Suicidal Ideation: No Suicidal Plan: No Suicidal Intention: No Homicidal Ideation: No Homicidal Plan: No Homicidal Intention: No Insight: Fair Judgment: Impulsive Assessment and Plan - Assessment (1) Poor impulse control Code(s): R45.87 - Impulsiveness Status: Acute - Plan Plan: On psychiatric evaluation the patient is irritable, superficially cooperative, minimizing recent overdose and potential suicidal attempt. Information given by the patient my psychiatric evaluation is disconnected of the information provided by law enforcement and the Deras act. Initially she told me that she does not take Xanax that she could not understand how Xanax was around her when she "blacked out", she denies that she has overdosed and she denies that she has used more medication than she is prescribed. This is a patient who was found down unconscious along with 2 empty bottles of Xanax and Ambien and had to be intubated and hospitalized in a critical care unit. She reports a psychiatric history of anxiety, no previous psychiatric hospitalizations, she denies previous suicidal attempts. Unfortunately, no collateral information could be found at this moment. At this moment, given the contradiction patient story and the fact that the patient does not even have an insight of her current situation, I am unable to lift the Deras act and the patient will be admitted in psychiatry for stabilization, observation, and safety. She needs to be in [facility] protocol. I suspect that the patient has being abusing benzodiazepines. Transfer to psychiatry once medically clear. Justification for Continued Inpatient Stay: Transfer to psychiatry once medically clear.
[2018-01-20] MEDS ORDERED: Haloperidol Inj 5 MG/ML Ampul IV.PUSH PRN (14:24)
[2018-01-20] MEDS ORDERED: LORazepam 1 MG Tablet PO PRN (14:24)
[2018-01-20 17:48] VITALS: BP 156/85; PULSE 85; RESP 16; O2SAT 98
--- NOTE | 2018-01-22 10:16 | MB ---
cc: Genoveva Lares MD DATE: 01/20/2018 AKA: [id number] HISTORY OF PRESENT ILLNESS: The patient is a 47-year-old woman brought in by EMS unresponsive. She was found by creative arts therapist lying on the floor in the kitchen with an empty bottle of medications, Ambien and Xanax, on the floor. The patient states that she had a bad headache. She called her daughter around 3:30. She states that she took Topamax 50 mg. She does not take it daily as prescribed, only when needed, but she does not like the way it makes her feel. She has a hard time talking with it. She also took some Fioricet. She is now extubated, back to baseline, offers no complaints. She states she gets numerous migraines a month. She has never been on any other preventative medication. She does not like certain medications. She states that triptans have not helped her either. PAST MEDICAL HISTORY: Migraines. Also has a history of a cervical spine fusion, history of a knee injury in the past with multiple surgeries. PHYSICAL EXAMINATION: VITAL SIGNS: Temperature is 98.3, pulse 85, respiratory rate 22, blood pressure 130/70, saturating at 99% on room air. NECK: Supple. HEART: Regular. NEUROLOGIC: She is awake, alert. She is oriented. She is fluent. She seems to be in good spirits. Pupils reactive. Visual segovia full. Face symmetric. Tongue midline. Motor: No weakness. No drift or leg lag. Cerebellar testing normal. Gait is withheld at this time. LABORATORY DATA: Reviewed. CBC is unremarkable today. Coag panel is normal. Chemistries: Potassium 3.1, calcium 7.9, alkaline phosphatase 31, GFR 60. Tox screen was positive for benzodiazepines. CT of the head was unremarkable for any acute findings. IMPRESSION: Possible medication overuse causing her to pass out, not clear. She has never had a seizure before, she states. It may have been due to the Alprazolam and the zolpidem combined. Psychiatry will evaluate her. She did receive Keppra; but, at this point in time, I would not continue it. She is back to baseline; however, no driving for 6 months or until cleared by neurology. CPK level, I believe, is on order. EEG was not done. At this point, we can forego that. I would recommend replacing her electrolytes. The Topamax, if she cannot tolerate and does not want to take it as a preventative, we can try her on propranolol 10 mg b.i.d. monitoring her heart rate and blood pressure. She can further continue this at home as well as increasing the dose per orders from her physician if needed. Other options as a preventative is a drug called Aimovig. It is a monthly injection. That certainly can be ordered. She can certainly follow up in the office post discharge and make further recommendations accordingly. MD NUVIA Triplett/ts , 11:04 AM , 11:12 AM
== END 2018-01-20 20:00 ==
LOC: NEPI 18:56 → NEDA 19:40 → EDBD 19:40 → N03 19:47
PROVIDERS: ADMIT Internal Medicine; ATTEND Internal Medicine

== ENCOUNTER 2018-01-20 19:13 | Inpatient (IN) ==
[2018-01-20] MEDS ORDERED: LORazepam 1 MG Tablet PO PRN (21:00)
[2018-01-20] MEDS ORDERED: Aluminum/Magnesium/Simethacone Susp 30 ML UDC PO PRN (21:15)
[2018-01-21] MEDS: Acetaminophen 325 MG Tablet PO PRN ×3 (01:15→13:50)
[2018-01-21 06:08] VITALS: BP 123/58; PULSE 69; RESP 18; TEMP 98; O2SAT 98
--- NOTE | 2018-01-21 15:07 | P.DSPSY ---
Psychiatry Discharge Summary Inpatient Psychiatric care?: Yes Advance Directives: No Mental Health Advance Directive: No Health Care Proxy: No - Admission Admission Date: January 20, 2018 20:05 - Admission Diagnosis (1) Adjustment disorder with mixed disturbance of emotions and conduct Code(s): F43.25 - Adjustment disorder with mixed disturbance of emotions and conduct Brief History: Please see H&P dictated by Dr. Macias Tobacco Use In Past 30 Days: No How Often Do You Have a Drink Containing Alcohol: Monthly or less Hospital Course: Patient initially seen in consultation by Dr. Macias, recommended further observation once medically cleared on the psychiatric unit. Dr. Macias's H& P reviewed. He did initiate first opinion petition supporting Braeden act. Patient seen by me with medical student Jaguar and RN. Patient is alert oriented critical care nurse. With a history of migraines and stress. Did get 8 $200,000 hospital bill for care her son received in [place] about a month and a half ago and appears patient took benzodiazepines though she has no recollection of her intent or perhaps the amount she took in any event patient was found obtunded intubated and transferred to the hospital. At the present time patient is sitting in her room as mentioned above she is alert oriented somewhat intense and emotional at this time though she denies suicidal ideation intent or plan at any time with this. Denies any mental health contact except for counseling with a psychologist a number of years ago with no psychiatric hospitalization. While they cleaned his bowels of Klonopin and Xanax near her she acknowledges being prescribed, Klonopin at at bedtime the empty Xanax bottles were her 's prescription. Patient is somewhat distraught at being from her 9-year-old child by her present and her 17-year -old daughter by a prior relationship and also by her pet dog. I did talk with patient's Chun at [phone] he verifies patient's statements. He feels there is no risk of patient doing something and towards towards self he feels quite safe in the coming home. He was this an accident preoperative reaction to her various medications she takes for migraine headaches also. Thus at this time I feel patient does not meet Deras criteria I will lift the Deras act patient to be discharged today to her no Rx by me and I would recommend she explore counseling through her insurance panel. Also would recommend her tapering off of her benzodiazepines - Discharge Discharge Date: 01/21/18 - Discharge Diagnosis (1) Adjustment disorder with mixed disturbance of emotions and conduct Diagnosis: Principal Code(s): F43.25 - Adjustment disorder with mixed disturbance of emotions and conduct Status: Acute Discharge Disposition: Home - Discharge Instructions Discharge Diet: Regular Diet Activities You Can Perform: Regular- No Restrictions - Discharge Time > 30 minutes Discharge/Advance Care Plan - Results Vital Signs: Last Vital Signs Temp 98 F 01/21/18 06:07 Pulse 69 01/21/18 06:07 Resp 18 01/21/18 06:07 BP 123/58 L 01/21/18 06:07 Pulse Ox 98 01/21/18 06:07 Lab Results: Urine toxicology positive for benzodiazepines Summary of Procedures: None done Pending Results: None - Medications Number of antipsychotic medications at discharge: 0 - Discharge Care Plan Goals to Promote Your Health: * To prevent worsening of your condition and complications * To maintain your health at the optimal level Directions to Meet Your Goals: Take your medications as prescribed Follow your dietary instruction Follow activity as directed Keep your appointments as scheduled Take your immunizations and boosters as scheduled If your symptoms worsen call your PCP, if no PCP go to Urgent Care Center or Emergency Room For 27/10 questions related to your inpatient stay or results of tests pending at discharge, please contact Dr. Manohar Aquino MD at Smoking is Dangerous to Your Health. Avoid second hand smoking
== END 2018-01-21 17:35 | disposition home or self-care (01) ==
LOC: H250 20:05 → H260 22:02
PROVIDERS: ADMIT Psychiatry & Neurology Psychiatry; ATTEND Psychiatry & Neurology Psychiatry